=== PATIENT | female | born 1965 | race Caucasian/White ===

== ENCOUNTER 2019-01-01 09:10 | Day surgery (SDC) | payer MEDICAID ==
[~2019-01-01] VITALS: Ht 180.3 cm; Wt 125.6 kg
[2019-01-01] MEDS ORDERED: IOPAMIDOL 50 ML VIAL IV ONE (09:11)
[2019-01-01] MEDS ORDERED: LIDOCAINE 2%, 20 ML MDV INJ ONE (09:11)
[2019-01-01] MEDS ORDERED: BUPIVACAINE /PF 0.25% 30 ML VIAL INJ ONE (09:11)
[2019-01-01] MEDS ORDERED: methylPREDNISolone ACETATE 40 MG/ML IM ONE (09:11)
[2019-01-01] MEDS ORDERED: MIDAZOLAM HCL 5 MG/5 ML VIAL ONE ×2 (09:52→11:19)
[2019-01-01] MEDS ORDERED: DIPHENHYDRAMINE INJ 50 MG/ML VIAL ONE ×2 (09:52→11:34)
[2019-01-01 14:04] VITALS: BP_SYST 126
== END 2019-01-01 13:00 | disposition home or self-care (01) ==
LOC: SDS 09:10 → SMU 09:10 → SDS 13:00
PROVIDERS: ATTEND Internal Medicine
DX: M51.16 Intervertebral disc disorders with radiculopathy, lumbar region (principal); M54.5 Low back pain; I10 Essential (primary) hypertension
CPT/HCPCS: 62323; J1030; J1200; J2001; J2250; J3490; J7120; Q9967; 76000

== ENCOUNTER 2019-03-27 10:20 | Day surgery (SDC) | payer MEDICAID ==
[~2019-03-27] VITALS: Ht 180.3 cm; Wt 127.0 kg
[2019-03-27] MEDS ORDERED: LIDOCAINE 2%, 20 ML MDV INJ ONE (10:21)
[2019-03-27] MEDS ORDERED: methylPREDNISolone ACETATE 40 MG/ML IM ONE (10:21)
[2019-03-27] MEDS ORDERED: IOHEXOL 300 mgI/mL, 50 mL INFUS..BTL IV ONE (10:21)
[2019-03-27] MEDS ORDERED: BUPIVACAINE /PF 0.25% 30 ML VIAL INJ ONE (10:21)
[2019-03-27] MEDS ORDERED: LR 1,000 ML IV.SOLN IV ONE (12:48)
[2019-03-27] MEDS ORDERED: MIDAZOLAM HCL 5 MG/5 ML VIAL ONE ×2 (12:48→13:04)
[2019-03-27] MEDS ORDERED: DIPHENHYDRAMINE INJ 50 MG/ML VIAL ONE (12:48)
[2019-03-27 14:38] VITALS: BP_SYST 127
== END 2019-03-27 15:15 | disposition home or self-care (01) ==
LOC: SDS 10:20
PROVIDERS: ATTEND Internal Medicine
DX: M51.16 Intervertebral disc disorders with radiculopathy, lumbar region (principal); M54.5 Low back pain; I10 Essential (primary) hypertension; M19.90 Unspecified osteoarthritis, unspecified site; Z98.890 Other specified postprocedural states; G89.4 Chronic pain syndrome; Z88.2 Allergy status to sulfonamides; Z88.8 Allergy status to other drugs, medicaments and biological substances; Z83.3 Family history of diabetes mellitus
CPT/HCPCS: 62323; J1030; J1200; J2001; J2250; J3490; J7120; Q9967; 76000

== ENCOUNTER 2019-11-22 09:19 | Day surgery (SDC) | payer MEDICAID ==
[~2019-11-22 09:19] MED LIST: BUPIVACAINE /PF 0.25% 30 ML VIAL INJ ONE; IOPAMIDOL 50 ML VIAL IV ONE; LIDOCAINE 2%, 20 ML MDV ONE; methylPREDNISolone ACETATE 40 MG/ML ONE
[2019-11-22] MEDS ORDERED: DIPHENHYDRAMINE INJ 50 MG/ML VIAL ONE (10:43)
[2019-11-22] MEDS ORDERED: MIDAZOLAM HCL 5 MG/5 ML VIAL ONE ×2 (10:43→13:27)
[2019-11-22 12:17] VITALS: BP_SYST 137
== END 2019-11-22 12:50 | disposition home or self-care (01) ==
LOC: SDS 09:19 → SMU 09:19 → SDS 12:50
PROVIDERS: ATTEND Internal Medicine
DX: M51.16 Intervertebral disc disorders with radiculopathy, lumbar region (principal); M25.562 Pain in left knee; G89.4 Chronic pain syndrome; I10 Essential (primary) hypertension; Z79.899 Other long term (current) drug therapy; Z98.51 Tubal ligation status; Z98.890 Other specified postprocedural states
CPT/HCPCS: 62323; J1030; J1200; J2001; J2250; J3490; Q9967; 76000

== ENCOUNTER 2020-08-05 07:22 | Day surgery (SDC) | payer MEDICAID ==
[~2020-08-05] VITALS: Ht 180.3 cm; Wt 122.5 kg
[2020-08-05] MEDS ORDERED: DIPHENHYDRAMINE INJ 50 MG/ML VIAL ONE (08:53)
[2020-08-05] MEDS: MIDAZOLAM HCL 5 MG/5 ML VIAL ONE ×2 (09:40→09:44)
[2020-08-05 09:55] VITALS: BP_SYST 142
== END 2020-08-05 11:20 | disposition home or self-care (01) ==
LOC: SDS 07:22 → SMU 07:22 → SDS 11:20
PROVIDERS: ATTEND Internal Medicine
DX: M51.16 Intervertebral disc disorders with radiculopathy, lumbar region (principal); G89.4 Chronic pain syndrome; I10 Essential (primary) hypertension; Z79.899 Other long term (current) drug therapy
CPT/HCPCS: 62323; J2250; 76000; J1200